=== PATIENT | female | born 1985 | race Caucasian/White ===

== ENCOUNTER 2023-10-18 12:06 | Emergency (ER) | payer BC, SELFPAY ==
[2023-10-18 12:07] VITALS: BP 151/95; PULSE 75; RESP 14; TEMP 36.1; O2SAT 98; BMI 35.6
--- NOTE | 2023-10-18 12:27 | EKG12_ITS ---
Test Reason : COLD SX Blood Pressure : / mmHG Vent. Rate : 079 BPM Atrial Rate : 079 BPM P-R Int : 154 ms QRS Dur : 100 ms QT Int : 404 ms P-R-T Axes : 020 -09 -08 degrees QTc Int : 463 ms Normal sinus rhythm Cannot rule out Anterior infarct , age undetermined Abnormal ECG Confirmed by BERNY GONSALEZ, WILNER ([id number]), editor house organ JAVIER LITTLE ([id number]) on 10/21/2023 9:43:40 AM Referred By: Confirmed By:BENJAMIN ARRIETA MD
--- NOTE | 2023-10-18 12:29 | EX.ED.DYSGE1 ---
HPI History of Present Illness Chief Complaint: Cold Sx Informant: patient Narrative Narrative: 38-year-old female presenting during first trimester with nasal congestion. Patient states that she woke up and did not feel nasal congestion. She was around her who was out in the barn yesterday but has not seen him today. She developed nasal congestion about 3 hours ago. She states it is not every breath but sometimes she has to take a secondary breath she did not feel that she was able to fully take of breath. She notes that this morning her upper abdomen seemed harder than normal. Patient was started on labetalol last week for hypertension. She states that she is also had some intermittent paresthesias on the vertex of her scalp. She said perhaps over the past hour or so she may have felt some postnasal drip but it seemed harder for her to swallow. No fevers or cough. No diarrhea. PFSH PFSH Home Medications ?Medication ?Instructions ?Recorded ?Last Taken ?Type Cetirizine Hcl [Zyrtec] 10 mg PO DAILY PRN PRN Allergies 01/16/16 Unknown History Allergy/AdvReac Type Severity Reaction Status Date / Time No Known Allergies Allergy Verified 10/18/23 12:07 Social History Smoking Status: Never smoker ROS ROS ED Constitutional Constitutional ED: Denies chills, fever(s) or weight loss Eyes Eyes: Denies change in vision or diplopia ENT ENT ED: Reports other Details: Nasal congestion ; Denies ear pain, rhinorrhea or sore throat Cardiovascular Cardiovascular: Denies chest pain, orthopnea, palpitations or racing heartbeat Respiratory/Chest Respiratory/Chest: Reports dyspnea; Denies cough or orthopnea Gastrointestinal Gastrointestinal: Reports abdominal pain; Denies diarrhea, nausea or vomiting Genitourinary Genitourinary ED: Denies dysuria, hematuria or urinary frequency Musculoskeletal Musculoskeletal: Denies arthralgias or myalgias Integumentary Denies abscess or rash Neurologic Neurologic: Reports paresthesias; Denies headache(s) or weakness Psychiatric Psychiatric: Denies anxiety, depression, suicidal ideation or suicidal thoughts Endocrine Endocrinology: Denies polydipsia, polyphagia or polyuria Allergic/Immunologic Allergic/Immunologic ED: Denies mouth swelling, tongue swelling or urticaria EXAM Physical Exam Const Vital Signs: 10/18/23 12:07 10/18/23 12:39 Temperature 97 F L Temperature Source Temporal Pulse Rate 75 Respiratory Rate 14 Respiratory Effort Short of Breath Respiratory Pattern Tachypnea Blood Pressure 151/95 H Blood Pressure Mean 113 Pulse Ox 98 Oxygen Delivery Method Room Air Positive well nourished and well developed General Appearance ED: well developed HEENT Reports normocephalic, head/scalp atraumatic and moist mucous membranes Eyes PERRL and EOMs intact bilaterally Neck no lymphadenopathy, supple and no JVD Resp normal respiratory effort and clear to auscultation bilaterally Cardio regular rate, regular rhythm and no murmurs GI normal to inspection, nondistended, normoactive bowel sounds and non-tender Palpation: soft Back/Spine no CVA tenderness and normal ROM Extremity normal to inspection General Extremety ED: Negative for edema General Extremity: Negative for edema Neuro oriented x3 and CN's II-XII intact bilaterally Sensorium / Orientation: alert Motor Exam: strength 5/5 throughout Psych mental status grossly normal Mood & Affect: Negative for depressed or tearful Skin no rashes or lesions noted and no wounds MDM MDM MDM Narrative Medical decision making narrative: Differential diagnosis includes but not limited to cardiac dysrhythmias pneumothorax pneumonia pleural effusion nasal congestion viral URI viral bronchitis with bronchospasm, hypertensive complications in Might have interpretation of the chest x-ray is no acute process. CBC with normal white count hemoglobin and platelet count. BMP with a CO2 of 20. Troponin is less than 3 urinalysis with no proteinuria or overt infection. Liver enzymes are normal. EKG is sinus. It is very difficult to say what is causing her nasal congestion of 3 hours. There is viral and allergic pathologies. She could have a degree of anxiety. I am not seeing anything acute that needs to be admitted to the hospital for her that I can acutely treat. Would recommend supportive care return if worsening or concerns History & Record Review Discussion w/independent historian: Patient Lab Data Attestation: I reviewed the patient's lab results. Labs: Laboratory Results - last 24 hr 10/18/23 10/18/23 12:36 13:10 WBC 8.6 RBC 4.30 Hgb 12.4 Hct 36.6 L MCV 85.1 MCH 28.8 MCHC 33.9 RDW Std Deviation 43.3 RDW Coeff of Rajan 14.0 Plt Count 228 MPV 10.2 Immature Gran % (Auto) 0.300 Neut % (Auto) 74.2 H Lymph % (Auto) 17.9 L Anderson % (Auto) 5.9 Eos % (Auto) 1.4 Baso % (Auto) 0.3 Absolute Neuts (auto) 6.4 Absolute Lymphs (auto) 1.54 Nucleated RBC % 0 Sodium 137 Potassium 3.5 Chloride 106 Carbon Dioxide 20.0 L Anion Gap 11 BUN 13 Creatinine 0.46 L Estim Creat Clear Calc 187.35 Est GFR (MDRD) Af Amer 194 Est GFR (MDRD) Non-Af 160 BUN/Creatinine Ratio 28.3 H Glucose 107 H Calcium 9.8 Magnesium 2.1 Total Bilirubin 0.30 Direct Bilirubin 0.09 AST 20 ALT 33 Alkaline Phosphatase 38 L Troponin I High Sens < 3 L Total Protein 7.2 Albumin 3.4 Globulin 3.8 Urine Color Straw Urine Clarity Clear Urine pH 6.0 Ur Specific [place] 1.010 Urine Protein Negative Urine Glucose (UA) Normal Urine Ketones 50 H Urine Occult Blood Negative Urine Nitrite Negative Urine Bilirubin Negative Urine Urobilinogen Normal Ur Leukocyte Esterase Negative Urine RBC 0 SEEN Urine WBC 0 SEEN Ur Squamous Epith Cells 0-5 SEEN Urine Bacteria 1+ Urine Mucus 0 SEEN Radiography Diagnostic Testing: Clinical Impression(s) from Imaging Studies Chest X-Ray 10/18/23 12:45 IMPRESSION: No acute cardiopulmonary process identified. Electronically Signed: Carey Mcdermott MD at 13:01 EDT Reading Location ID and State: [facility] / [place] Tel , Service support , EKG Initial EKG: Attestation: I personally reviewed and interpreted this EKG as follows: Comments: Normal sinus rhythm ventricular rate of 79 bpm normal sinus rhythm ventricular rate of 79 bpm Discharge Plan Triage Chief Complaint: Cold Sx ED Provider: Dani Ugalde Dx/Rx/DC Orders Clinical Impression: First trimester , Nasal congestion, Acute dyspnea Instructions: 1st Trimester, ED Dyspnea Prescriptions: No Action Cetirizine Hcl [Zyrtec] 10 MG tablet 10 mg PO DAILY PRN PRN (Reason: Allergies) Primary Care Provider: Care Physician,No Primary Referrals: Jan Franco, [Med Staff - Corporate Account Executive] - As Needed Activity Restrictions/Additional Instructions: Please monitor yourself for the next 24 to 48 hours for new or worsening symptoms. This may be the beginning of a viral upper respiratory infection or could be allergies. Please return if you have concerns or worsening Print Language: Lithuanian Disposition Disposition: Home, Self Care
--- NOTE | 2023-10-18 12:45 | RAD_ITS ---
HISTORY: dyspnea -- first trimester . TECHNIQUE: XR Chest 1 View. COMPARISON: 06/11/2013. FINDINGS: CARDIOMEDIASTINAL BORDERS: Cardiac silhouette within normal limits in size. Mediastinal contour unremarkable. LUNGS: Radiographically clear. PLEURA: No pleural effusion or pneumothorax seen. OSSEOUS STRUCTURES: Old left fifth rib fracture. RAD/Chest 1 View (Portable) IMPRESSION: No acute cardiopulmonary process identified. Electronically Signed: Carey Mcdermott MD at 13:01 EDT ,
[2023-10-18 12:47] LABS: Absolute Lymphocyte Count 1.54 X10^3/uL (0.83-4.51); Absolute Neutrophil Count 6.4 X10^3/uL (2.0-7.7); Basophil# 0.03 X10^3/uL; Basophil% 0.3 % (0-1); Eosinophil# 0.12 X10^3/uL; Eosinophils% 1.4 % (0-5); Hematocrit 36.6 % (37-47); Hemoglobin 12.4 g/dL (12.0-15.0); Lymphocyte # 1.54 X10^3/ul (0.83-4.51); Lymphocyte % 17.9 % (19-41); Mean Corp Hgb Conc 33.9 g/dL (32-36); Mean Corpuscular Hgb 28.8 pg (27.0-32.0); Mean Corpuscular Volume 85.1 fL (81-99); Mean Platelet Vol. 10.2 fl (6.2-12.0); Monocyte# 0.51 X10^3/uL; Monocyte% 5.9 % (0-10); NRBC Flagged by Analyzer 0 % (0-5); Neutrophil # 6.38 X10^3/uL (2.7-7.7); Neutrophil % 74.2 % (47-70); Platelet Count 228 K/mm3 (150-450); RBC Distribution Width SD 43.3 fl (35.1-43.9); White Blood Count 8.6 K/mm3 (4.4-11.0)
[2023-10-18 13:07] LABS: AST(SGOT) 20 U/L (15-37); Alanine Aminotransfer ALT/SGPT 33 U/L (13-56); Albumin, Serum 3.4 g/dL (3.2-5.0); Alkaline Phosphatase 38 U/L (45-117); Anion Gap 11 (5-15); BUN 13 mg/dL (7-18); BUN/Creat Ratio 28.3 RATIO (10-20); Bilirubin, Direct 0.09 mg/dL (0.00-0.30); Calcium,Total 9.8 mg/dL (8.5-10.1); Chloride 106 mmol/L (98-107); Creatinine, Serum 0.46 mg/dL (0.55-1.02); EST Glomerular Filtration Rate 160 mL/min (>60); Est Glom Filt Rate - Afr Amer 194 mL/min (>60); Estimated Creatinine Clearance 187.35 ml/min; Globulin 3.8 g/dL (2.2-4.2); Glucose 107 mg/dL (74-106); Magnesium 2.1 mg/dL (1.6-2.6); Potassium 3.5 mmol/L (3.5-5.1); Protein, Total 7.2 g/dL (6.4-8.2); Sodium Level 137 mmol/L (136-145); Troponin-I HS < 3 pg/mL (3.0-54.0)
[2023-10-18 13:18] LABS: Mucous, Urine 0 SEEN /hpf (<or=2+); Red Blood Cells-Urine 0 SEEN /hpf (0-5); White Blood Cells 0 SEEN /hpf (0-5)
[2023-10-18 13:30] LABS: Color, Urine Straw (Yellow); Glucose, Dipstick Normal (Normal); Ketone-Dipstick 50 mg/dl (Negative); Leukocyte Esterase-Dipstick Negative /ul (Negative); Nitrite-Dipstick Negative (Negative); Occult Blood-Urine Negative /ul (Negative); Protein-Dipstick Negative (Negative); Urine Bilirubin Dipstick Negative (Negative); Urine Clarity Clear (Clear); Urine Urobilinogen Normal (Normal)
[2023-10-18 13:50] LABS: Bacteria 1+ /hpf (None Seen)
[2023-10-18 13:52] LABS: Squamous Epithelial Cells - UA 0-5 SEEN /hpf (5-10)
[2023-10-18 14:15] VITALS: BP 142/89; PULSE 91; RESP 18; TEMP 36.1; O2SAT 95
== END 2023-10-18 14:17 | disposition home or self-care (01) ==
PROVIDERS: Emergency Provider Emergency Medicine; Visit Provider Emergency Medicine
DX: O99.891 Other specified diseases and conditions complicating pregnancy (principal); R09.81 Nasal congestion; R06.00 Dyspnea, unspecified; O16.1 Unspecified maternal hypertension, first trimester; Z79.899 Other long term (current) drug therapy; Z3A.00 Weeks of gestation of pregnancy not specified
CPT/HCPCS: 71045; 80048; 80076; 81001; 83735; 84484; 85025; 93005; 99283; A4216